=== PATIENT | female | born 1950 | race Caucasian/White ===

== ENCOUNTER 2017-04-21 16:11 | Emergency (ER) | payer OTHER | END 2017-04-21 18:28 | disposition home or self-care (01) | LOC: ER1 16:11 | DX: M79.662 Pain in left lower leg (principal); M25.572 Pain in left ankle and joints of left foot; R60.0 Localized edema; Z88.5 Allergy status to narcotic agent; Z79.82 Long term (current) use of aspirin | CPT/HCPCS: 93971; 99283 ==

== ENCOUNTER 2021-01-13 00:49 | Emergency (ER) | payer MEDICARE ==
[~2021-01-13 00:49] MED LIST: ECOTRIN81 MG PO; EFFEXOR XR75 MG PO; ELIQUIS 2.5 MG2.5 MG PO; FISH OIL CONCE1 EAC1 PO; FLONASE 0.05% N16 GM; INDERAL LA60 MG PO; K-DUR TAB 20 M20 MEQ PO; LASIX40 MG PO; LIPITOR TAB 2020 MG PO; LITHIUM CARBON150 MG PO; LUTEIN20 M1 PO; NYSTOP60 GM TP; SYNTHROID 100100 MCG PO; THERAGRAN M TAB1 EA PO; TYLENOL 8 HOUR650 MG PO; VITAMIN D32000 UNI1 PO; XYZAL5 MG PO; ZESTRIL40 MG PO
== END 2021-01-13 04:00 | disposition home or self-care (01) ==
LOC: ER1 00:49
DX: M17.12 Unilateral primary osteoarthritis, left knee (principal); M16.12 Unilateral primary osteoarthritis, left hip
CPT/HCPCS: 73502; 73564; 99283

== ENCOUNTER 2021-01-13 11:52 | Emergency (ER) | payer MEDICARE | END 2021-01-13 13:55 | disposition left against medical advice (07) | LOC: ER1 11:52 | DX: Z53.21 Procedure and treatment not carried out due to patient leaving prior to being seen by health care provider (principal) ==

== ENCOUNTER 2021-02-24 17:49 | Emergency (ER) | payer MEDICARE | END 2021-02-24 23:40 | disposition short-term general hospital (02) | LOC: ER1 17:49 | DX: S82.102A Unspecified fracture of upper end of left tibia, initial encounter for closed fracture (principal); S82.832A Other fracture of upper and lower end of left fibula, initial encounter for closed fracture; I10 Essential (primary) hypertension; Z86.73 Personal history of transient ischemic attack (TIA), and cerebral infarction without residual deficits; Z90.710 Acquired absence of both cervix and uterus; Z79.01 Long term (current) use of anticoagulants; Z79.899 Other long term (current) drug therapy; Z88.6 Allergy status to analgesic agent; W18.30XA Fall on same level, unspecified, initial encounter | CPT/HCPCS: 29515; 73560; 73590; 73600; 99285 ==

== ENCOUNTER 2022-01-27 00:52 | Emergency (ER) | payer MEDICARE ==
[2022-01-27 02:18] LABS: HEMOGLOBIN 10.8 gm/dl (12.3-15.3); RED BLOOD COUNT 3.55 M/UL (4.00-5.10); WHITE BLOOD COUNT 10.3 K/UL (4.5-11.0)
[2022-01-27 03:47] LABS: BUN/CREATININE RATIO 17 (0-10)
== END 2022-01-27 08:08 | disposition home or self-care (01) ==
LOC: ER1 00:52
PROVIDERS: Family Medicine
DX: M17.12 Unilateral primary osteoarthritis, left knee (principal); R29.6 Repeated falls; M80.062A Age-related osteoporosis with current pathological fracture, left lower leg, initial encounter for fracture; I10 Essential (primary) hypertension; E03.9 Hypothyroidism, unspecified; F41.9 Anxiety disorder, unspecified; F32.9 Major depressive disorder, single episode, unspecified; Z79.82 Long term (current) use of aspirin
CPT/HCPCS: 73502; 73552; 73564; 73590; 73610; 80053; 81001; 82550; 82553; 84484; 85025; 85610; 93005; 99284

== ENCOUNTER 2022-02-06 10:01 | Emergency (ER) | payer MEDICARE ==
[2022-02-06 10:37] LABS: HEMOGLOBIN 11.8 gm/dl (12.3-15.3); RED BLOOD COUNT 3.83 M/UL (4.00-5.10); WHITE BLOOD COUNT 11.1 K/UL (4.5-11.0)
[2022-02-06 10:58] LABS: BUN/CREATININE RATIO 14 (0-10)
== END 2022-02-06 21:39 | disposition home or self-care (01) ==
LOC: ER1 10:01
PROVIDERS: Family Medicine
DX: R47.9 Unspecified speech disturbances (principal); G47.10 Hypersomnia, unspecified; F19.90 Other psychoactive substance use, unspecified, uncomplicated; Z79.899 Other long term (current) drug therapy; N18.9 Chronic kidney disease, unspecified; F32.A Depression, unspecified; F41.9 Anxiety disorder, unspecified; E78.5 Hyperlipidemia, unspecified; W19.XXXA Unspecified fall, initial encounter
CPT/HCPCS: 70450; 71045; 80053; 80178; 81001; 82550; 82553; 84439; 84443; 84484; 85025; 85610; 93005; 99285

== ENCOUNTER 2022-02-10 08:57 | Inpatient (IN) | payer MEDICARE, OTHER ==
[~2022-02-10] VITALS: Ht 157.5 cm; Wt 77.1 kg
[~2022-02-10 08:57] MED LIST changes: -ECOTRIN81 MG PO; +EFFEXOR XR 3737.5 MG PO; -EFFEXOR XR75 MG PO; -INDERAL LA60 MG PO; +INDERAL TAB 1010 MG PO; -K-DUR TAB 20 M20 MEQ PO; -LIPITOR TAB 2020 MG PO; +LIPITOR40 MG PO; +POTASSIUM CHLO10 ME1 PO
[2022-02-10 09:30] LABS: HEMOGLOBIN 12.8 gm/dl (12.3-15.3); RED BLOOD COUNT 4.16 M/UL (4.00-5.10); WHITE BLOOD COUNT 22.4 K/UL (4.5-11.0)
[2022-02-11 01:54] LABS: HEMOGLOBIN 11.2 gm/dl (12.3-15.3); WHITE BLOOD COUNT 17.2 K/UL (4.5-11.0)
[2022-02-11 02:02] LABS: RED BLOOD COUNT 3.65 M/UL (4.00-5.10)
[2022-02-11] MEDS ORDERED: ECOTRIN81 MG PO (16:22)
[2022-02-11] MEDS ORDERED: OXYBUTYNIN CHLOR5 M1 PO (17:10)
[2022-02-11] MEDS ORDERED: ONDANSETRON HCL4 MG PO (17:11)
[2022-02-11] MEDS ORDERED: MIRTAZAPINE7.5 MG PO (17:12)
[2022-02-11] MEDS ORDERED: CITALOPRAM HBR40 MG PO (17:12)
[2022-02-11] MEDS ORDERED: DIAZEPAM10 MG PO (17:13)
[2022-02-11] MEDS ORDERED: RISPERIDONE1 MG PO (17:14)
[2022-02-11] MEDS ORDERED: ELIQUIS 2.5 MG2.5 MG PO (17:41)
[2022-02-12 06:16] LABS: HEMOGLOBIN 11.4 gm/dl (12.3-15.3); RED BLOOD COUNT 3.72 M/UL (4.00-5.10); WHITE BLOOD COUNT 15.3 K/UL (4.5-11.0)
[2022-02-13 03:27] LABS: HEMOGLOBIN 9.7 gm/dl (12.3-15.3); WHITE BLOOD COUNT 18.5 K/UL (4.5-11.0)
[2022-02-13 03:45] LABS: RED BLOOD COUNT 3.19 M/UL (4.00-5.10)
[2022-02-13 06:25] LABS: HEMOGLOBIN 9.5 gm/dl (12.3-15.3)
[2022-02-13 14:11] LABS: HEMOGLOBIN 9.1 gm/dl (12.3-15.3)
[2022-02-13 18:09] LABS: HEMOGLOBIN 9.6 gm/dl (12.3-15.3)
[2022-02-14 05:43] LABS: HEMOGLOBIN 7.7 gm/dl (12.3-15.3); RED BLOOD COUNT 2.47 M/UL (4.00-5.10); WHITE BLOOD COUNT 18.9 K/UL (4.5-11.0)
[2022-02-14 12:33] LABS: HEMOGLOBIN 7.9 gm/dl (12.3-15.3)
[2022-02-15 02:03] LABS: HEMOGLOBIN 7.3 gm/dl (12.3-15.3)
[2022-02-15 05:49] LABS: HEMOGLOBIN 7.2 gm/dl (12.3-15.3); RED BLOOD COUNT 2.41 M/UL (4.00-5.10); WHITE BLOOD COUNT 14.8 K/UL (4.5-11.0)
[2022-02-15 06:53] LABS: BUN/CREATININE RATIO 17 (0-10)
[2022-02-15 11:53] LABS: HEMOGLOBIN 7.6 gm/dl (12.3-15.3)
--- NOTE | 2022-02-15 20:23 | NUR ---
I CALLED [facility], [facility] , TO OBTAIN CONSENT FOR A BLOOD TRANSFUSION. I GOT NO ANSWER AT THIS TIME AND I AM AWAITING A CALL BACK TO TRY TO GET CONSENT FOR THE BLOOD TRANSFUSION.
[2022-02-16 08:30] LABS: RED BLOOD COUNT 2.61 M/UL (4.00-5.10); WHITE BLOOD COUNT 11.1 K/UL (4.5-11.0)
[2022-02-16 08:53] LABS: BUN/CREATININE RATIO 12 (0-10)
[2022-02-17 11:01] LABS: BUN/CREATININE RATIO 11 (0-10)
[2022-02-17 11:03] LABS: HEMOGLOBIN 9.5 gm/dl (12.3-15.3); WHITE BLOOD COUNT 12.7 K/UL (4.5-11.0)
[2022-02-17 11:06] LABS: RED BLOOD COUNT 3.12 M/UL (4.00-5.10)
--- NOTE | 2022-02-18 16:45 | NUR ---
UPON ENTERING PATIENTS ROOM, PATIENT HAS PULLED OUT HER DOBHOFF. PATIENT IS IN NO DISTRESS. PROVIDER MADE AWARE. SHE STATES TO PUT A NEW DOBHOFF IN AND PUT A BRIDLE ON.
[2022-02-19 02:22] LABS: HEMOGLOBIN 9.1 gm/dl (12.3-15.3); WHITE BLOOD COUNT 12.9 K/UL (4.5-11.0)
[2022-02-19 02:52] LABS: BUN/CREATININE RATIO 8 (0-10)
[2022-02-20 10:28] LABS: HEMOGLOBIN 9.4 gm/dl (12.3-15.3); RED BLOOD COUNT 3.04 M/UL (4.00-5.10); WHITE BLOOD COUNT 13.2 K/UL (4.5-11.0)
[2022-02-20 10:49] LABS: BUN/CREATININE RATIO 8 (0-10)
--- NOTE | 2022-02-20 23:27 | NUR ---
PT PULLED OUT F/C. NOTIFIED MD AND RECIEVED ORDERS. WILL CONTINUE TO MONITOR.
[2022-02-21 03:11] LABS: HEMOGLOBIN 8.8 gm/dl (12.3-15.3); RED BLOOD COUNT 2.91 M/UL (4.00-5.10)
[2022-02-21 03:55] LABS: BUN/CREATININE RATIO 8 (0-10)
[2022-02-22 08:52] LABS: HEMOGLOBIN 9.9 gm/dl (12.3-15.3); WHITE BLOOD COUNT 9.1 K/UL (4.5-11.0)
[2022-02-22 08:57] LABS: RED BLOOD COUNT 3.22 M/UL (4.00-5.10)
[2022-02-22 09:43] LABS: BUN/CREATININE RATIO 8 (0-10)
[2022-02-23 03:09] LABS: HEMOGLOBIN 10.4 gm/dl (12.3-15.3); RED BLOOD COUNT 3.46 M/UL (4.00-5.10); WHITE BLOOD COUNT 10.2 K/UL (4.5-11.0)
[2022-02-23 04:49] LABS: BUN/CREATININE RATIO 8 (0-10)
--- NOTE | 2022-02-23 23:01 | NUR ---
PT PULLED OUT NG TUBE. NOTIFIED MD AND RECIEVED ORDERS. WILL CONTINUE TO MONITOR.
[2022-02-24 04:30] LABS: BUN/CREATININE RATIO 11 (0-10)
[2022-02-25 03:19] LABS: WHITE BLOOD COUNT 9.2 K/UL (4.5-11.0)
[2022-02-25 03:34] LABS: RED BLOOD COUNT 2.98 M/UL (4.00-5.10)
[2022-02-25 03:39] LABS: BUN/CREATININE RATIO 10 (0-10)
[2022-02-26 01:40] LABS: HEMOGLOBIN 8.8 gm/dl (12.3-15.3); RED BLOOD COUNT 2.9 M/UL (4.00-5.10); WHITE BLOOD COUNT 7.7 K/UL (4.5-11.0)
[2022-02-26 02:35] LABS: BUN/CREATININE RATIO 10 (0-10)
[2022-02-27 02:47] LABS: HEMOGLOBIN 8.5 gm/dl (12.3-15.3); RED BLOOD COUNT 2.78 M/UL (4.00-5.10); WHITE BLOOD COUNT 6.8 K/UL (4.5-11.0)
[2022-02-27 02:51] LABS: BUN/CREATININE RATIO 9 (0-10)
[2022-02-28 11:10] LABS: BUN/CREATININE RATIO 14 (0-10)
[2022-03-01 04:10] LABS: BUN/CREATININE RATIO 14 (0-10)
[2022-03-02 03:28] LABS: RED BLOOD COUNT 2.97 M/UL (4.00-5.10); WHITE BLOOD COUNT 9.6 K/UL (4.5-11.0)
[2022-03-02 04:24] LABS: BUN/CREATININE RATIO 16 (0-10)
--- NOTE | 2022-03-02 14:00 | NUR ---
REPORT CALLED TO BELA AT [facility].
== END 2022-03-02 16:37 | DRG 871 ==
LOC: ER1 08:57 → CDU 14:18 → M/S 16:29
PROVIDERS: Internal Medicine; Physician Assistant; Student in an Organized Health Care Education/Training Program; ADMIT Internal Medicine
PROC: 0DH67UZ Insertion of Feeding Device into Stomach, Via Natural or Artificial Opening (ICD-10-PCS; principal; 2022-02-10)
PROC: 3E0G76Z Introduction of Nutritional Substance into Upper GI, Via Natural or Artificial Opening (ICD-10-PCS; 2022-02-10)
PROC: B24BZZZ Ultrasonography of Heart with Aorta (ICD-10-PCS; 2022-02-11)
DX: A41.9 Sepsis, unspecified organism (principal); G92.8 Other toxic encephalopathy; J69.0 Pneumonitis due to inhalation of food and vomit; E87.0 Hyperosmolality and hypernatremia; N17.9 Acute kidney failure, unspecified; M62.82 Rhabdomyolysis; E87.1 Hypo-osmolality and hyponatremia; N39.0 Urinary tract infection, site not specified; E46 Unspecified protein-calorie malnutrition; R04.2 Hemoptysis; Z20.822 Contact with and (suspected) exposure to COVID-19; Z66 Do not resuscitate; E86.1 Hypovolemia; Z96.698 Presence of other orthopedic joint implants; N18.30 Chronic kidney disease, stage 3 unspecified; E87.6 Hypokalemia; R65.20 Severe sepsis without septic shock; F03.90 Unspecified dementia, unspecified severity, without behavioral disturbance, psychotic disturbance, mood disturbance, and anxiety; F31.9 Bipolar disorder, unspecified; F41.9 Anxiety disorder, unspecified; I12.9 Hypertensive chronic kidney disease with stage 1 through stage 4 chronic kidney disease, or unspecified chronic kidney disease; E03.9 Hypothyroidism, unspecified; R62.7 Adult failure to thrive; E78.5 Hyperlipidemia, unspecified; R53.81 Other malaise; R13.10 Dysphagia, unspecified; R13.0 Aphagia; W18.30XA Fall on same level, unspecified, initial encounter; I34.0 Nonrheumatic mitral (valve) insufficiency; E86.0 Dehydration; Z79.01 Long term (current) use of anticoagulants; Z79.82 Long term (current) use of aspirin; Z98.42 Cataract extraction status, left eye; Z98.41 Cataract extraction status, right eye; Z90.710 Acquired absence of both cervix and uterus; Z81.8 Family history of other mental and behavioral disorders; Z82.49 Family history of ischemic heart disease and other diseases of the circulatory system; Z83.49 Family history of other endocrine, nutritional and metabolic diseases; Z90.13 Acquired absence of bilateral breasts and nipples; Z51.5 Encounter for palliative care; Z56.0 Unemployment, unspecified; Y93.9 Activity, unspecified; Z68.30 Body mass index [BMI] 30.0-30.9, adult
CPT/HCPCS: ECHO; 36415; 36430; 70450; 70551; 71045; 74018; 74230; 80048; 80053; 80061; 80178; 80202; 81001; 82272; 82550; 82553; 82728; 83540; 83550; 83735; 84100; 84132; 84484; 85014; 85018; 85025; 85027; 85045; 86850; 86900; 86901; 86920; 87040; 92507; 92526; 92610; 92611-GN; 93005; 93306; 93880; 97110; 97110-GP-CQ; 97162; 97167; 97168; 97530; 97530-GP-CQ; 97535; 99285; C9113; G0378; J0692; J0696; J3370; J3480; J7030; J7070; P9016; Q9967; U0002

== ENCOUNTER 2022-05-26 19:26 | Inpatient (IN) | payer MEDICARE ==
[~2022-05-26] VITALS: Ht 160 cm; Wt 63.5 kg
[~2022-05-26 19:26] MED LIST changes: +CITALOPRAM HBR40 MG PO; +DIAZEPAM10 MG PO; +ECOTRIN81 MG PO; -EFFEXOR XR 3737.5 MG PO; +MIRTAZAPINE7.5 MG PO; +ONDANSETRON HCL4 MG PO; +OXYBUTYNIN CHLOR5 M1 PO; +RISPERIDONE1 MG PO; +VENLAFAXINE HC150 M1 PO
[2022-05-26 20:25] LABS: HEMOGLOBIN 12.7 gm/dl (12.3-15.3); RED BLOOD COUNT 4.23 M/UL (4.00-5.10); WHITE BLOOD COUNT 13.5 K/UL (4.5-11.0)
[2022-05-26 20:56] LABS: BUN/CREATININE RATIO 23 (0-10)
[2022-05-27 04:42] LABS: HEMOGLOBIN 13.3 gm/dl (12.3-15.3); RED BLOOD COUNT 4.43 M/UL (4.00-5.10); WHITE BLOOD COUNT 13.7 K/UL (4.5-11.0)
[2022-05-27] MEDS ORDERED: POTASSIUM CHLO20 ME1 PO (11:10)
[2022-05-27] MEDS ORDERED: BUPROPION HCL100 MG PO (11:15)
[2022-05-27] MEDS ORDERED: MULTIVITAMIN1 EACH PO (11:16)
[2022-05-28 06:27] LABS: HEMOGLOBIN 12.3 gm/dl (12.3-15.3); RED BLOOD COUNT 4.13 M/UL (4.00-5.10); WHITE BLOOD COUNT 15.9 K/UL (4.5-11.0)
[2022-05-29 06:51] LABS: BUN/CREATININE RATIO 17 (0-10)
[2022-05-29 06:55] LABS: HEMOGLOBIN 10.9 gm/dl (12.3-15.3)
[2022-05-29 07:11] LABS: RED BLOOD COUNT 3.65 M/UL (4.00-5.10); WHITE BLOOD COUNT 11.8 K/UL (4.5-11.0)
[2022-05-30 06:58] LABS: RED BLOOD COUNT 3.66 M/UL (4.00-5.10); WHITE BLOOD COUNT 11.4 K/UL (4.5-11.0)
[2022-05-30 07:16] LABS: BUN/CREATININE RATIO 18 (0-10)
[2022-05-30] MEDS ORDERED: NITROFURANTOIN100 MG PO (12:36)
== END 2022-05-30 18:15 | disposition home health service (06) | DRG 872 ==
LOC: ER1 19:26 → CDU 22:24 → MED SURG 4 05-27 09:13
PROVIDERS: Internal Medicine; Physician Assistant; ADMIT Internal Medicine
DX: A41.51 Sepsis due to Escherichia coli [E. coli] (principal); N17.9 Acute kidney failure, unspecified; N39.0 Urinary tract infection, site not specified; Z20.822 Contact with and (suspected) exposure to COVID-19; F31.9 Bipolar disorder, unspecified; F03.90 Unspecified dementia, unspecified severity, without behavioral disturbance, psychotic disturbance, mood disturbance, and anxiety; R65.20 Severe sepsis without septic shock; F41.9 Anxiety disorder, unspecified; M81.0 Age-related osteoporosis without current pathological fracture; E78.5 Hyperlipidemia, unspecified; G25.1 Drug-induced tremor; E03.9 Hypothyroidism, unspecified; Z96.698 Presence of other orthopedic joint implants; E86.0 Dehydration; R53.81 Other malaise; Z98.42 Cataract extraction status, left eye; Z98.41 Cataract extraction status, right eye; Z90.13 Acquired absence of bilateral breasts and nipples; Z90.710 Acquired absence of both cervix and uterus; Z88.8 Allergy status to other drugs, medicaments and biological substances
CPT/HCPCS: 0240U; 36415; 70551; 71045; 80048; 80053; 80178; 81001; 82436; 82533; 82550; 82553; 83605; 83690; 83735; 83880; 84100; 84133; 84300; 84439; 84443; 84484; 84550; 85025; 85610; 85730; 86140; 87040; 87077; 87086; 87186; 93005; 96374; 96375; 96376; 97161; 97166; 97530; 99285; G0378; J0696; J1650; J2405